=== PATIENT | female | born 1955 | race Two or more races ===

== ENCOUNTER → 2019-11-07 | Emergency (ER) | payer OTHER, BC ==
[~2019-11-07] VITALS: Ht 162.6 cm; Wt 77.1 kg
[~2019-11-07] MED LIST: ALPRAZolam 0.5 MG TAB PO ONE; HYDROcodone-ACET 5/325MG TAB PO ONE; IOHEXOL 300 MG/ML 100ML BOTTLE IJ ONE; ONDANSETRON ODT 4 MG TAB PO ONE; SODIUM CHLORIDE 0.9% 1,000 ML IV ONE
[2019-11-07 20:06] LABS: Basophils # (auto) 0.1 10 ^3/uL (0-0.2); Basophils % (auto) 0.4 % (0.0-2.0); Eosinophils # (auto) 0.1 10 ^3/uL (0-0.8); Eosinophils % (auto) 0.5 % (0.0-7.0); Hematocrit 42.7 % (36.0-46.0); Hemoglobin 14.1 g/dL (12.2-16.2); Lymphocytes # (auto) 1.5 10 ^3/uL (0.4-5.4); Lymphocytes % (auto) 12.3 % (10.0-50.0); Mean Corpuscular Hemoglobin 28.7 pg (28.0-32.0); Mean Corpuscular Volume 86.9 fL (80.0-100.0); Monocytes # (auto) 0.9 10 ^3/uL (0-1.3); Monocytes % (auto) 7.1 % (0.0-12.0); Neutrophils # (auto) 9.7 10 ^3/uL (1.6-8.6); Neutrophils % (auto) 79.7 % (37.0-80.0); Platelet Count (auto) 132 10^3/uL (140-450); Red Blood Cells 4.91 10^6/uL (4.0-5.20); White Blood Cell 12.2 10^3/uL (4.4-10.8)
[2019-11-07 20:22] LABS: Albumin 4.4 g/dL (3.4-5.0); Anion Gap 7 (5-15); Blood Urea Nitrogen 24 mg/dL (7-18); Calcium 9.3 mg/dL (8.5-10.1); Carbon Dioxide 25 mmol/L (21-32); Chloride 105 mmol/L (98-107); Glucose 151 mg/dL (74-106); Sodium 137 mmol/L (136-145)
[2019-11-07 20:27] LABS: Alanine Aminotransferase 66 U/L (13-56); Alkaline Phosphatase 96 U/L (45-117); Aspartate Aminotransferase 52 U/L (15-37); BUN/Creatinine Ratio 22.2; Bilirubin, Total 0.3 mg/dL (0.2-1.0); GFR African American 65 mL/min; GFR Non-African American 54 mL/min; Total Protein 8.6 g/dL (6.4-8.2)
[2019-11-08 00:37] VITALS: BP 141/74
== END | disposition home or self-care (01) ==
LOC: EDBD 18:04 → ER 18:04
DX: S22.20XA Unspecified fracture of sternum, initial encounter for closed fracture (principal); S80.211A Abrasion, right knee, initial encounter; V89.2XXA Person injured in unspecified motor-vehicle accident, traffic, initial encounter; Y93.I9 Activity, other involving external motion; Y92.410 Unspecified street and highway as the place of occurrence of the external cause; Y99.8 Other external cause status
CPT/HCPCS: 36415; 71250; 72128; 80053; 82962; 84484; 85025; 93005; 99285; J7030; Q0162; Q9967